=== PATIENT | female | born 1940 | race Caucasian/White ===

== ENCOUNTER 2019-08-25 15:46 | Inpatient (IN) | payer MEDICARE, MEDICAID ==
[2019-08-25] MEDS ORDERED: PLAVIX75 M1 PO (16:08)
[2019-08-25] MEDS ORDERED: EXELON1 EACH TD (16:08)
[2019-08-25] MEDS ORDERED: JANUVIA100 MG PO (16:09)
[2019-08-25] MEDS ORDERED: ZESTORETIC 10-1 EACH PO (16:09)
[2019-08-25] MEDS ORDERED: MELATONIN10 M2 PO (16:10)
[2019-08-25] MEDS ORDERED: REMERON15 M2 PO (16:12)
[2019-08-25] MEDS ORDERED: SEROQUEL100 MG PO (16:12)
[2019-08-25] MEDS ORDERED: SEROQUEL50 MG PO (16:13)
[2019-08-25] MEDS ORDERED: VITAMIN D3125 MC1 PO (16:14)
[2019-08-25] MEDS ORDERED: DEPAKOTE SPRIN125 MG PO (16:19)
[2019-08-25] MEDS ORDERED: ADVIL200 MG PO (16:20)
--- NOTE | 2019-08-26 11:25 | NUR ---
TOÑO BILLINGS a 79 year old F admitted via stretcher from the [facility] as a voluntary BY POA admission. Arrived on unit at 1105 . ALLERGIES: PCN . Vital signs are: -[id number] . VERBAL CONSENT RECEIVED FROM CARMEN ORTIZ, FOR the following forms with stated understanding: Authorization For The Release of Medical Information, Clothing List, Consent to Voluntary Admission and Hospitalization, Consent and Release Forms/Receipt of Rights, Acknowledgement of Advance Directive Information, Behavioral Health Consent Form, and Informed Consent of Medications. Admitted under the services of Dr. JULIUS HICKS,[facility]. A search was conducted and hazardous articles were removed. Client was oriented to the unit. JAMISON SANTIAGO PT REFUSED TO HAVE TEMP, BP, HEIGHT AND WEIGHT ASSESSED. PT UNABLE TO PPARTICIAPTE IN SUICIDE SCREENINGS AND GERIATRIC DEPRESSION SCREENING D/T COGNITION. PT HAS A SKIN TEAR TO RIGHT WRIST, UNABLE TO PHOTOGRAPH OR MEASURE DUE TO PT BEHAVIORS. PT ALERT TO SELF ONLY, CONFUSION AND SHORT TERM MEMORY DEFICITS NOTED PER PT BASELINE. PT COUNTING REPETITIVELY AND RAISING HER VOICE AT TIMES. PT PACING AND RESTLESS.
--- NOTE | 2019-08-26 11:30 | NUR ---
SPOKE WITH DR SANTIAGO AT [phone] RE: MEDICAL MANAGEMENT CONSULT NEEDED, PER DR RED CONSULT UNDER DR HERNANDEZ. ALSO ADVISED THAT PT NEEDS ORDERS FOR SKIN TEAR TO RIGHT WRIST. NO FURTHER ORDERS AT THIS TIME.
--- NOTE | 2019-08-26 11:33 | NUR ---
ROULA LAGUNAS NOTIFIED OF ADMISSION AND VOLUNTARY BY POA STATUS.
--- NOTE | 2019-08-26 11:51 | NUR ---
PT RESTLESS, PACING, INTRUSIVE TO PERSONAL SPACE, ATTEMPTING TO TOUCH OTHER PEERS. DISRUPTING THE MILIEU. ALL ATTEMPTS AT REDIRECTION INEFFECTIVE. PT 1:1 AT THIS TIME. PRN ATIVAN PO GIVEN. WILL MONITOR EFFECTIVENESS OF MEDICATION.
--- NOTE | 2019-08-26 12:30 | NUR ---
PT REMAINS 1:1 DUE TO BEHAVIORS. CONTINUES TO BE UNREDIRECTABLE. PACING HALLS. REPETITIVELY REPEATING NUMBERS. VISIBLY ANXIOUS. PT PLACED IN A MARKEL CHAIR WITH 1:1 FROM THIS NURSE. ENRIQUE MONZON NOTED. PT INCONTINENT OF BM FOR THE SECOND TIME TODAY. JANA CARE PROVIDED TIMES 3 STAFF. WILL CONTINUE TO MONITOR EFFECTIVENESS OF ATIVAN PO.
--- NOTE | 2019-08-26 13:00 | NUR ---
SPOKE WITH DAVID LOCO RECORDS MANAGEMENT TECHNICIAN RE: PT BEHAVIORS, STAFF GIVING PO ATIVAN, WITHOUT EFFECT. NEW ORDERS RECEIVED FOR PO/IM VISTARIL.
--- NOTE | 2019-08-26 13:04 | NUR ---
PT CONTINUES TO BE RESTLESS, REPETITIVE, AND ANXIOUS. PT STATING SHE IS SWEATING AND REMAINS VISIBLY ANXIOUS. 1:1 CONTINUES FROM THIS NURSE. PRN VISTARIL GIVEN PER ORDER. WILL MONITOR EFFECTIVENESS OF MEDICATION.
[2019-08-26 13:27] LABS: BASO % 0.2 % (0.0-1.0); EOS # 0.1 10*3/uL (0.0-0.4); EOS % 1.2 % (1.0-4.0); HEMATOCRIT 30.1 % (37.0-47.0); LYMPH # 1.4 10*3/uL (1.3-4.4); LYMPH % 13.1 % (27.0-41.0); MEAN CELL VOLUME 101.7 fl (81.0-99.0); MEAN CORPUSCULAR HGB 33.4 pg (27.0-31.0); MEAN CORPUSCULAR HGB CONC 32.9 g/dl (33.0-37.0); MEAN PLATELET VOLUME 10.7 fl (9.6-12.3); MONO # 0.8 10*3/uL (0.1-1.0); MONO % 7.8 % (3.0-9.0); NEUT # 8.1 10*3/uL (2.3-7.9); NEUT % 76.8 % (47.0-73.0); PLATELET COUNT AUTOMATED 219 10*3/uL (130-400); RED BLOOD COUNT 2.96 10*6/uL (4.10-5.10); RED CELL DISTRI WIDTH 14.6 % (0-14.5); WHITE BLOOD COUNT 10.6 10*3/uL (4.8-10.8)
[2019-08-26 13:37] LABS: ALBUMIN 3.5 gm/dl (3.1-4.5); CREATININE 1.32 mg/dL (0.55-1.02); POTASSIUM 4.5 mmol/L (3.5-5.1); TOTAL PROTEIN 7.1 gm/dL (6.4-8.2)
[2019-08-26 13:43] LABS: THYROID STIM HORMONE (HS) 2.91 uIU/ml (0.358-4.75)
--- NOTE | 2019-08-26 14:04 | NUR ---
PRN ATIVAN AND VISTARIL IS INEFFECTIVE. PT CONTINUES TO CHANT NUMBERS REPETITIVELY.
[2019-08-26 14:24] LABS: VITAMIN D, 25-HYDROXY 18.6 ng/mL (30-100)
--- NOTE | 2019-08-26 18:26 | NUR ---
RAPID COVID TEST COMPLETED AND RESULTS WERE NEGATIVE. PT TOLERATED WELL.
--- NOTE | 2019-08-26 19:55 | NUR ---
24 HR chart check completed.
[2019-08-26 19:58] VITALS: BP 126/84
--- NOTE | 2019-08-26 21:24 | NUR ---
P-MANIC, CONFUSION, NON STOP TALKING, REPETITIVE SPEECH I-REDIRECT, ADMINISTER MEDS, MONITOR SLEEP R-ALERT TO PERSON ONLY, RESPONSE TO PLACE WAS, "THE FATHER STATION. THE FATHER THAT CORRECTS THE FAMILY". SHE IS RESTLESS, REPETITIVE & NONSTOP SPEECH OF CHANTING NUMBERS. SHE HAS BEEN IN THE ROOM ACROSS FROM THE NURSES STATION TO MONITOR FOR HER SAFETY. CONFUSION PRESENT. COGNITIVELY IMPAIRED. HAS BEEN DISROBING HERSELF & PLAYING WITH A BABYDOLL. ATE SNACK. COMPLIANT TAKING MEDICATIONS CRUSHED. MEDICATED WITH ATIVAN 1 MG PO @ 1935. MEDICATED WITH VISTARIL 50 MG PO @ 2032. P-CONTINUE TO MONITOR
--- NOTE | 2019-08-26 23:07 | NUR ---
STRAIGHT CATHED UNDER STERILE TECHNIQUE PER P&P. URINE CLOUDY. EMPTIED BLADDER OF 225ML URINE. CLIENT INCONTENT OF URINE AND BOWEL PRIOR TO TEST
--- NOTE | 2019-08-26 23:07 | NUR ---
STRAIGHT CATH UNDER STERILE TECHIQUE. IMMEDIATE RETURN OF CLOUDY THOMAS URINE. CLIENT TOLERATED WELL
[2019-08-26 23:27] LABS: BILIRUBIN NEGATIVE (NEGATIVE); BLOOD TRACE-INTACT (NEGATIVE); CLARITY SL CLOUDY (CLEAR); COLOR YELLOW (YELLOW); GLUCOSE NEGATIVE (NEGATIVE); KETONE NEGATIVE (NEGATIVE); LEUKO ESTERASE 2+ (NEGATIVE); NITRITE POSITIVE (NEGATIVE); PH 6.5 (5.0-9.0); UROBILINOGEN 0.2 E.U./dl (0.2-1.0)
[2019-08-26 23:32] LABS: BACTERIA 4+; WBC TNTC wbc/hpf (0-5)
--- NOTE | 2019-08-26 23:49 | NUR ---
PT HAS CALMED A LITTLE WITH ATIVAN & GEODON. SHE HAS CONTINUED TO BE RESTLESS & NON STOP TALKING & CHANTING OF NUMBERS. PT HAS STATED A FEW TIMES, "CANT STOP, MAKE IT STOP" & COUNTS NUMBERS IN BETWEEN WORDS. MEDICATED @ 2308 WITH GEODON 10 MG IM
--- NOTE | 2019-08-27 06:15 | NUR ---
DR JIMÉNEZ NOTIFIED OF URINE RESULTS. STATED SHE WILL LOOK AT IT.
--- NOTE | 2019-08-27 06:16 | NUR ---
GEODON HAS BEEN EFFECTIVE & PT HAS SLEPT PAST 003
[2019-08-27 07:06] LABS: VALPROIC ACID (DEPAKENE) 77.9 ug/ml (50-100)
[2019-08-27 07:41] VITALS: BP 131/67
--- NOTE | 2019-08-27 10:25 | NUR ---
DR. KOO ON UNIT TO ASSESS PATIENT.
--- NOTE | 2019-08-27 11:26 | NUR ---
WILLIAM CHINCHILLA COMPLETED THIS DATE.
--- NOTE | 2019-08-27 15:17 | NUR ---
Shift chart check completed.
--- NOTE | 2019-08-27 15:40 | NUR ---
P: INCREASED CONFUSION, REPEATIVE COUNTING OF NUMBERS, ANXIOUS. I: ONE ON ONE, REDIRECTION, ASSISTED TO QUIET ROOM FOR CHANGE ON ENVIROMENT AND LOW STIMLI, AND PROVIDED MUSIC THERAPY. R: INEFFECTIVE. PATIENT CONTINUES TO COUNT NUMBERS. PATIENT IS NOT RECEPTIVE TO NURSE OR NON PHARMALOGICAL INTERVENTIONS. PATIENT IS ALERT TO SELF AND HANDS ON CARE ONLY; NOT ABLE TO RECALL NAME OR ANSWER STAFF USING HER NAME. LONG/SHORT TERM MEMORY DEFICITS. MEDICATION COMPLIANT. Q 15 MINUTE SAFETY CHECKS. 2-3 PERSON ASSIST WITH ACTIVITIES OF DAILY LIVING, INCONTINENT OF BOWEL AND BLADDER. SET UP FOR MEALS, INTAKE ARE VARIES. UP IN MARKEL CHAIR FOR COMFORT. PATIENT TOOK ANTIBOTIC FOR UTI. P: CONTINUE TO MONITOR FOR AGGRESSION, REPEATIVE COUNTING, WANDERING, INTRUSIVE OF PERSONAL SPACE. PROVIDE ONE ON ONE, REDIRECTION NEEDED.
[2019-08-27 20:00] VITALS: BP 117/63
--- NOTE | 2019-08-28 00:43 | NUR ---
P-CONFUSION, REPETITIVE, NONSENSICAL. I-ASSESS ORIENTATION, MOOD, BEHAVIOR. PRESENT REALITY AND REORIENT. PROVIDE 1:1 WITH THERAPEUTIC INTERVENTIONS. PROVIDE DIVERSION TECHNIQUES. ENCOURAGE MEDICATION COMPLIANCE AND EDUCATE. MONITOR SLEEP. R-PATIENT ALERT TO SELF, CONFUSED. PT CONTINUES TO HAVE REPETITIVE SPEECH OF COUNTING NUMBERS WITH NONSENSICAL STATEMENTS DESPITE REDIRECTION. PT AT TIMES APPEARS INTERMITTENTLY ANXIOUS, RESTLESS. DIVERSION TECHNIQUES PROVIDED TO HELP CALM WITH POSITIVE EFFECT. PT MEDICATION COMPLIANT WITHOUT DIFFICULTY WHEN CRUSHED IN PUDDING, UNABLE TO PROVIDE EDUCATION DUE TO COGNITION. PT VOICES NO SI/HI, HALLUCINATIONS, OR PAIN. PT X2-3 ASSIST WITH HOC, ALL NEEDS ANTICIPATED BY STAFF, INCONTINENT OF BOWEL AND BLADDER. NO COMBATIVE BEHAVIORS OBSERVED. PT CURRENTLY LAYING BACK IN MARKEL CHAIR IN DINING ROOM NEAR NURSES STATION DUE TO LACK OF SAFETY AWARENESS. PT WITH EYES CLOSED, RESPIRATIONS EASY AND REGULAR, NO DISTRESS NOTED. P-CONTINUE TO MONITOR MOOD AND BEHAVIORS. MAINTAIN Q 15 MIN CHECKS AND PRN FOR SAFETY.
--- NOTE | 2019-08-28 06:05 | NUR ---
PATIENT OBSERVED ON Q 15 MIN CHECKS TO HAVE SLEPT APPROX 5 HOURS UNINTERRUPTED. NO SIGNS OR SYMPTOMS OF DISTRESS NOTED.
--- NOTE | 2019-08-28 07:28 | NUR ---
TOÑO BILLINGS [id number] Please refer to the physician's history and physical for past medical history, comorbid conditions, and allergies. Diagnosis: INTERMITTENT EXPLOSIVE DISORDER Osei Score: 20,LOW OR NO RISK WOUND DESCRIPTIONS: This nurse along with with Raven Leyva RN evaluated patient for skin impairments. Wound Number: 1 Location of the wound: right wrist Type of wound: skin tear Thickness: Partial Size: 4.0cm x 1.5cm x 0.1cm Tunneling: none Undermining: none Sinus Tract: none Presence of Exudate: Serosanguineous Amount: Light Color: Red Odor: None Periwound Skin Appearance: Normal Wound edges: approximated Pain (associated with wound): none at time of assessment How does patient state this happened? pt unable to state how this happened Wound Number: 2 Location of the wound: left forearm Type of wound: skin tear Thickness: Partial Size: 1.5cm x 0.8cm x 0.1cm Tunneling: none Undermining: none Sinus Tract: none Presence of Exudate: Serosanguineous Amount: Light Color: Red Odor: None Periwound Skin Appearance: Normal Wound edges: approximated Pain (associated with wound): none at time of assessment How does patient state this happened? pt unable to state how this happened dsd appilied to right wrist and left forearm Patient tolerate dressing changes with much encouragement. Unable to do complete assessment at this time due to patient's behaviors. [facility]ION RECOMMENDATION: 1. Pressure redistribution support surface as appropriate 2. Elevate heels 3. Remove boots/TEDS every shift and reapply 4. Head of bed 30 degrees as tolerated 5. Assess nutrition and hydration 6. Manage moisture 7. Avoid the use of containment devices while in bed 8. Use absorptive products on surfaces limit layers of linens on bed 9. Turn and reposition every 1-2 hours in bed and every 1 hour in chair as tolerated 10. Weight shifts every 15 minutes while up in chair 11. Offloading with pillows or device to keep heels elevated off bed 12. Monitor skin at least every shift 13. Inspect under medical devices twice a day WOUND TREATMENT RECOMMENDATIONS: Skin tear guidelines: Cleanse right wrist, left forearm with nss and apply sureprep around the wound hydrogel to wound bed and cover with optifoam gentle every 2 days and prn for soiling.
[2019-08-28 07:32] VITALS: BP 121/67
--- NOTE | 2019-08-28 08:04 | NUR ---
Nursing screen received and chart reviewed. Patient admitted from [facility] for intermittent explosive disorder. If patient has a decline in ADLs, transfers, or functional mobility, please send OT orders. Thank you. Danae Samson OTR/L
--- NOTE | 2019-08-28 08:20 | NUR ---
PHYSICAL THERAPY PT screen complete and chart reviewed. Patient admitted for intermittent explosive disorder. Recommend skilled PT evaluation if decline in functional mobility presents. Thank you. Lakia Lund,PT,DPT
--- NOTE | 2019-08-28 09:00 | NUR ---
Treatment Plan meeting was held with Dr. Gardiner, ABHI Gonzales, RN, AT, GLUE MAKER BONE-S and Biology Professor. Plan for discharge Next week. Pt. arrived to [facility] from [facility]. Will reach out to facility to discuss discharge Planning.
--- NOTE | 2019-08-28 10:29 | NUR ---
Ayse DIEHL notified of wound care orders needed.
--- NOTE | 2019-08-28 11:00 | NUR ---
LUCY HANNAH CNP ON UNIT TO ASSESS PATIENT.
--- NOTE | 2019-08-28 12:46 | NUR ---
SPEECH PATHOLOGY Nursing screen completed. Patient does not appear to be appropriate for speech services at this time however this dept. will be available should future needs arise. DAO ABEBE MSCCC-MOLECULAR GENETICIST
--- NOTE | 2019-08-28 13:28 | NUR ---
Spoke with Mariajose the Aircraft General Repair Mechanic at [facility]. Pt. is LTC at facility and can return at discharge. Clinical Updates faxed to facility. [phone].
--- NOTE | 2019-08-28 14:31 | NUR ---
P: CONFUSION, DISRUPTIVE TO OTHER PATIENTS WITH HYPTERVERBAL COUNTING OF NUMBERS. I: ONE ON ONE, REDIRECTION, ASSISTED TO QUIET ROOM FOR CHANGE ON ENVIROMENT AND LOW STIMLI. R: INEFFECTIVE. PATIENT CONTINUES TO COUNT NUMBERS. PATIENT IS NOT RECEPTIVE TO NURSE OR NON PHARMALOGICAL INTERVENTIONS. PATIENT IS ALERT TO SELF AND HANDS ON CARE ONLY; NOT ABLE TO RECALL NAME OR ANSWER STAFF USING HER NAME. LONG/SHORT TERM MEMORY DEFICITS. MEDICATION COMPLIANT. Q 15 MINUTE SAFETY CHECKS. 2 PERSON ASSIST WITH ACTIVITIES OF DAILY LIVING, INCONTINENT OF BOWEL AND BLADDER. SET UP FOR MEALS, INTAKE ARE VARIES. UP IN MARKEL CHAIR FOR COMFORT. INTERACTIVE WITH NURSING STAFF ONLY. P: CONTINUE TO MONITOR FOR AGGRESSION, REPEATIVE COUNTING, INTRUSIVE OF PERSONAL SPACE. PROVIDE ONE ON ONE, REDIRECTION NEEDED.
--- NOTE | 2019-08-28 18:36 | NUR ---
Shift chart check completed.
[2019-08-28 19:27] VITALS: BP 155/87
--- NOTE | 2019-08-29 02:42 | NUR ---
P-CONFUSION, REPETITIVE, NONSENSICAL. I-ASSESS ORIENTATION, MOOD, BEHAVIOR. PRESENT REALITY AND REORIENT. PROVIDE 1:1 WITH THERAPEUTIC INTERVENTIONS. PROVIDE DIVERSION TECHNIQUES. ENCOURAGE MEDICATION COMPLIANCE AND EDUCATE. MONITOR SLEEP. R-PATIENT ALERT TO SELF, CONFUSED. PT CONTINUES TO HAVE REPETITIVE SPEECH OF COUNTING NUMBERS WITH NONSENSICAL STATEMENTS DESPITE REDIRECTION. PT APPEARS ANXIOUS, RESTLESS. DIVERSION TECHNIQUES AND INTERVENTIONS PROVIDED WITH NO SUCCESS, RECEIVED PRN VISTARIL 50MG PO AT 0246. PT MEDICATION COMPLIANT WITHOUT DIFFICULTY WHEN CRUSHED IN APPLESAUCE, UNABLE TO PROVIDE EDUCATION DUE TO COGNITION. PT VOICES NO SI/HI, HALLUCINATIONS, OR PAIN. PT X2-3 ASSIST WITH HOC, ALL NEEDS ANTICIPATED BY STAFF, INCONTINENT OF BOWEL AND BLADDER. NO COMBATIVE BEHAVIORS OBSERVED. PT CURRENTLY LAYING BACK IN MARKEL CHAIR IN DINING ROOM NEAR NURSES STATION DUE TO LACK OF SAFETY AWARENESS. NO DISTRESS NOTED. P-CONTINUE TO MONITOR MOOD AND BEHAVIORS. MAINTAIN Q 15 MIN CHECKS AND PRN FOR SAFETY.
--- NOTE | 2019-08-29 04:33 | NUR ---
Upon discharge recommend patient to follow up for wound care in outpatient setting continue current wound care orders at discharging facility.
--- NOTE | 2019-08-29 04:38 | NUR ---
PATIENT CONTINUES TO CHANT NUMBERS, RESTLESS. PRN VISTARIL GIVEN AT 0237 NOT EFFECTIVE AT THIS TIME. WILL CONTINUE TO MONITOR FOR ESCULATING BEHAVIORS.
--- NOTE | 2019-08-29 05:13 | NUR ---
24 HOUR CHART CHECK COMPLETED.
--- NOTE | 2019-08-29 05:50 | NUR ---
PATIENT OBSERVED ON Q 15 MIN CHECKS TO HAVE SLEPT ZERO HOURS THROUGHOUT THE NIGHT. NO DISTRESS NOTED.
[2019-08-29 07:42] VITALS: BP 163/85
--- NOTE | 2019-08-29 08:30 | NUR ---
Treatment Plan meeting was held this a.m. with ABHI Gonzales, RN, AT, COLLECTIONS CURATOR-S and Broker Agricultural Produce. Plan for discharge Next Week. Pt. will return to [facility].
--- NOTE | 2019-08-29 11:35 | NUR ---
LUCY HANNAH ACCELERATOR SYSTEMS DIRECTOR ON UNIT TO ASSESS PT, UPDATE PROVIDED.
--- NOTE | 2019-08-29 15:08 | NUR ---
Patient continues to voice series of numbers. Pt will provide brief answers to questions but will immediately return to voicing series of numbers. Pt will only interact when a direct question is asked of her.
--- NOTE | 2019-08-29 15:47 | NUR ---
GROUP B PT DID NOT ATTEND GROUP THERAPY. PT WAS IN BED RESTING.
[2019-08-29 20:00] VITALS: BP 158/80
--- NOTE | 2019-08-29 21:56 | NUR ---
WALKED IN MERRY WALKER FOR OVER 3 HOURS. NO CHANGE IN REPETATIVE SPEECH OR INTRUSIVE BEHAVIOR. UNABLE TO REORIENT OR REDIRECT. HAD SNACK AND FLUIDS EARLIER. MEDICATED WITH VISTARIL PO PER ORDERS FOR AGGITATION. PLACED CLOSE TO NURSING DESK FOR MONITORING
--- NOTE | 2019-08-30 00:16 | NUR ---
VISTARIL EFFECTIVE FOR ANXIETY.. RESTING QUIET AT THIS TIME
--- NOTE | 2019-08-30 06:09 | NUR ---
SLEPT APPROX 6 HOURS UNINTERUPTED
--- NOTE | 2019-08-30 06:29 | NUR ---
Pt sleeping in gerichair at time of assessment. Dressing intact to left forearm. This nurse along with nurse caring for patient went to evaluate new skin impairment. Patient had resistances at this time while trying to lift arm up to evaluate wound. This nurse explained to nurse caring for patient that when patient is more alert to please let us know and we will try to reevaluate the situation.
--- NOTE | 2019-08-30 07:43 | NUR ---
Patient resting quietly with no c/o discomfort. Respirations easy and regular. Vital signs stable. No overt distress. CHANDLER CORRIGAN [facility]OSPITAL[facility]rick- on unit to see pt at this time, update given.
[2019-08-30 07:44] VITALS: BP 142/73
--- NOTE | 2019-08-30 08:30 | NUR ---
Treatment Plan meeting was held via telephone with Dr. Gardiner, ABHI Gonzales, RN, AT, MANAGER HARDWARE-S and Brine Tank Separator Operator. Plan for discharge Next Week. Pt. will return to [facility].
--- NOTE | 2019-08-30 09:50 | NUR ---
PHYSICAL THERAPY PT evaluation attempted. Patient resting soundly at this time. Request per nursing to return at a later time/ date, due to patient not resting well overnight. Will return at a later time/ date to complete evaluation. Thank you. Lakia Lund,PT,DPT
--- NOTE | 2019-08-30 11:36 | NUR ---
AM GROUP PT DID NOT ATTEND MORNING GROUP THERAPY. PT WAS RESTING IN A QUIET ROOM
--- NOTE | 2019-08-30 15:01 | NUR ---
Clinical Updates faxed to [facility] Attn: Mariajose. [phone].
--- NOTE | 2019-08-30 15:50 | NUR ---
GROUP B/CRAFTS PT IS UNABLE TO ATTEND GROUP THERAPY AT THIS TIME DUE TO COGNITIVE IMPAIRMENT. PT WAS WALKING THE [facility] IN THE [facility]
--- NOTE | 2019-08-30 17:24 | NUR ---
P: PT RESTLESS, ANXIOUS, CONTINUES TO COUNT REPEATEDLY THROUHGOUT THE DAY. I: PROVIDE EMOTIONAL SUPPORT AND 1:1 FOR PT TO VOICE FEELINGS, OFFER DIVERSIONAL ACTIVITIES, PROVIDE REDIRECTION, PROVIDE LOW STIMUALTION ENVIRONMENT FOR PT TO CALM R: PT ALERT TO PERSON ONLY, CONFUSION AND SHORT TERM MEMORY DEFICITS NOTED PER PT BASELINE. PT MED COMPLIANT WITHOUT DIFFICULTY, UNABLE TO PROVIDE MED EDUCATION D/T COGNITION. PT CONTINUES TO COUNT REPEATEDLY WITHOUT STOPPING, DIVERSION ACTIVITIES AND REDIRECTION INEFFECTIVE. PT UP TO A GERICHAIR D/T UNSTEADY GAIT AND LACK OF SAFETY AWARENESS. PT WILL AMBULATE IN MERRYWALKER AT TIMES. PT INCONTINENT OF BOWEL AND BLADDER, CARE PROVIDED NEEDED, REQUIRES 3 STAFF ASSIST FOR HANDS ON CARE. P: MONITOR PT BEHAVIORS ON Q15 MIN SAFETY CHECKS, ENCOURAGE MED COMPLIANCE, OFFER REDIRECTION AND DIVERSIONAL ACTIVITIES, PROVIDE EMOTIONAL SUPPORT AND 1:1 FOR PT TO VOICE FEELINGS, PROVIDE LOW STIMULATION ENVIRONMENT FOR PT TO CALM.
[2019-08-30 20:00] VITALS: BP 140/78
--- NOTE | 2019-08-30 20:46 | NUR ---
MEDICATION COMPLIANT. CONTINUES TO COUNT WITH REPEATING 72 COME DAD BE THERE. WHEN ASKED HOW SHE WAS SHE REPLIED FINE THEN WENT BACK TO COUNTING. ATE HER SNACK AND TOOK IN FLUIDS. WILL MONITOR FOR CHANGES IN MOOD/BEHAVIOR AND Q 15 MINS AND PRN
--- NOTE | 2019-08-31 00:26 | NUR ---
AMBULATED TO BATHROOM WITH ASSIST OF 2. GAIT UNSTEADY. CLIENT ANSWERS YES AND NO QUESTIONS INBETWEEN COUNTING. PM CARE COMPLETED. INCONTINENT OF URINE. RETURNED TO MARKEL CHAIR AND IS CURRENTLY WATCHING TV
--- NOTE | 2019-08-31 03:14 | NUR ---
TOÑO BILLINGS [id number] Please refer to the physician's history and physical for past medical history, comorbid conditions, and allergies. Diagnosis: INTERMITTENT EXPLOSIVE DISORDER Osei Score: 16,AT RISK WOUND DESCRIPTIONS: New Skin Impairment: Wound Number: 3 Location of the wound: left forearm distal Type of wound: skin tear Thickness: Partial Size: 2.2cm x 0.6cm x 0.1cm Tunneling: none Undermining: none Sinus Tract: none Presence of Exudate: none Amount: None Color: Red Odor: None Periwound Skin Appearance: ecchymotic Wound edges: approximated Pain (associated with wound): none at time of assessment How does patient state this happened? pt unable to state how this happened Wound Number: 4 Location of the wound: right elbow Type of wound: skin tear Thickness: Partial Size: 1.0cm x 0.8cm x 0.1cm Tunneling: none Undermining: none Sinus Tract: none Presence of Exudate: none Amount: None Color: [place] Odor: None Periwound Skin Appearance: Normal Wound edges: approximated Pain (associated with wound): none at time of assessment How does patient state this happened? pt unable to state how this happen Surface the patient is resting on: [employer] SKIN PREVENTION RECOMMENDATION: 1. Pressure redistribution support surface as appropriate 2. Elevate heels 3. Remove boots/TEDS every shift and reapply 4. Head of bed 30 degrees as tolerated 5. Assess nutrition and hydration 6. Manage moisture 7. Avoid the use of containment devices while in bed 8. Use absorptive products on surfaces limit layers of linens on bed 9. Turn and reposition every 1-2 hours in bed and every 1 hour in chair as tolerated 10. Weight shifts every 15 minutes while up in chair 11. Offloading with pillows or device to keep heels elevated off bed 12. Monitor skin at least every shift 13. Inspect under medical devices twice a day WOUND TREATMENT RECOMMENDATIONS: D/C skin tear guidelines Cleanse left forearm proximal, left forearm distal, right elbow and right wrist with nss apply tegaderm dressing every 3 days and prn for soiling. lossening of the film or if it begins to roll up at the corners.
--- NOTE | 2019-08-31 03:27 | NUR ---
During assessment this nurse had to have assistances with care due to patient having behaviors unabe to obtain photographs at this time for new skin impairment. Patient has long sleeves on and sleeves were placed down over the dressing patient continues to push sleeves up and continue to rub on the gerichair arms. Unable to keep sleeves down at time of assessment.
--- NOTE | 2019-08-31 05:29 | NUR ---
24 HR chart check completed. HAS NOT SLEPT SO FAR THIS SHIFT
[2019-08-31 07:51] VITALS: BP 115/63
--- NOTE | 2019-08-31 09:00 | NUR ---
Treatment Plan meeting was held this a.m. via telephone with Dr. Gardiner, RN, AT, HEARING AID DISPENSER-S and Division Road Supervisor. Plan for discharge Next week with return to [facility].
--- NOTE | 2019-08-31 11:43 | NUR ---
AM GROUP/RELAXATION PT WAS PRESENT FOR MORNING GROUP THERAPY AND WAS SITTING IN A MARKEL CHAIR REPEATEDLY COUNTING. PT BEGAN UPSETTING A MALE PEER AT NO FAULT OF HER OWN BUT WAS REMOVED FROM THE DAYROOM TO CALM THE MALE PEER AND TO PROTECT HER.
--- NOTE | 2019-08-31 12:58 | NUR ---
P: PT REPEATEDLY COUNTING OUT OF ORDER. PT RESTLESS I: PROVIDE DIVERSIONAL ACTIVITIES, PROVIDE EMOTIONAL SUPPORT AND 1:1 FOR PT TO VOICE FEELINGS, PROVIDE REDIRECTION R: PT ALERT TO PERSON ONLY, CONFUSION AND SHORT TERM MEMORY DEFICITS NOTED PER PT BASELINE, STAFF PROVIDED RE-ORIENTATION, INEFFECTIVE DUE TO COGNITION. PT MED COMPLIANT WITHOUT DIFFICULTY. PT COUNTING HAS DECREASED INTERMITTENTLY. PT AMBUALTORY WITH STAFF ASSISTANCE, UNSTEADY GAIT, UP TO A GERICHAIR AT THIS TIME, D/T UNSTEADY GAIT AND LACK OF SAFETY AWARENESS. PT INCONTINENT OF BOWEL AND BLADDER, CARE PROVIDED NEEDED. NO HALLUCINATIONS OR DELUSIONS NOTED. NO SUICIDAL THOUGHTS OR BEHAVIORS NOTED. P: MONITOR PT BEHAVIORS ON Q15 MIN SAFETY CHECKS, PROVIDE RE-ORIENTATION, OFFER DIVERSIONAL ACTIVITIES, PROVIDE REDIRECTION, OFFER EMOTIONAL SUPPORT AND 1:1 FOR PT TO VOICE FEELINGS.
--- NOTE | 2019-08-31 15:40 | NUR ---
GROUP B PT ATTENDED AFTERNOON GROUP THERAPY AND PARTICIPATED TO THE BEST OF HER ABILITY. PT PLAYED TOSS AND LOOKED AT THE NEWSPAPER. PT DID VERY LITTLE COUNTING AND WAS ENGAGED IN THE ACTIVITIES.
--- NOTE | 2019-08-31 19:41 | NUR ---
SITTING WATCHING TV. PLEASENT AND INTERACTIVE. NOTICABLE DECREASE IN COUNTING. EATING SNACK PROVIDED BY STAFF. WILL CONTINUE TO MONITOR FOR CHANGES IN MOOD/BEHAVIOR. MONITOR Q 15 MINUTES AND PRN FOR SAFETY
[2019-08-31 20:00] VITALS: BP 115/64
--- NOTE | 2019-09-01 00:26 | NUR ---
RESTING WELL IN BED. 24 HR chart check completed.
[2019-09-01 08:00] VITALS: BP 112/62
--- NOTE | 2019-09-01 09:00 | NUR ---
Treatment Plan meeting was held this a.m. with OPERATOR MAINTAINER Janet, RN, AT, CONCRETE MIXER OPERATOR-S and Herbologist in attendance. Plan for discharge Next week. 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
--- NOTE | 2019-09-01 09:08 | NUR ---
PHYSICAL THERAPY Physical Therapy evaluation completed on 3N with full evaluation to follow. Low complexity PT evaluation per chart review and evaluation, [id number]. Recommend physical therapy per plan of care and return to LTC upon discharge. Thank you for this referral. Lakia Lund,PT,DPT
--- NOTE | 2019-09-01 10:51 | NUR ---
Nutritional Support Services Note: Skin tears noted. Encourage 100% po intake of all maels and snacks. Will follow as needed. Shreya Gagnon Rdn Ld
--- NOTE | 2019-09-01 11:40 | NUR ---
AM GROUP PT WAS PRESENT FOR MORNING GROUP THERAPY SITTING IN A MARKEL CHAIR SLEEPING. PT WOKE ONCE AND WAS PLEASANT. PT FELL BACK TO SLEEP.
--- NOTE | 2019-09-01 13:39 | NUR ---
GROUP A PT WAS PRESENT FOR GROUP THERAPY STILL EATING HER LUNCH. PT FINISHED AND FELL ASLEEP.
--- NOTE | 2019-09-01 15:24 | NUR ---
Clinical Updates faxed to [facility].
--- NOTE | 2019-09-01 15:34 | NUR ---
Shift chart check completed.
--- NOTE | 2019-09-01 15:44 | NUR ---
GROUP B / DUSTIN PT WAS PRESENT FOR GROUP THERAPY RECLINED IN A MARKEL CHAIR SLEEPING. PT DID NOT WAKE DURING GROUP.
--- NOTE | 2019-09-01 17:07 | NUR ---
PRN MOM 30ml PO given at this time for relief of constipation. No documented BM x3 days. +BSx4. Abd soft nontender. No s/s discomfort noted. Will monitor for medication effect.
--- NOTE | 2019-09-01 17:31 | NUR ---
PATIENT IS ALERT TO SELF ONLY WITH CONFUSION. LONG/SHORT TERM MEMORY DEFICITS NOTED. MOOD IS STABLE. NO YELLING OUT, COUNTING OF NUMBER OR AGGRESSION OBSERVEC. NO RESPONSE TO INTERNAL STIMULI OBSERVED. NO VOICED STATEMENT OF HI/SI OR PAIN. INTERACTIVE WITH STAFF DURING HANDS ON CARE. ATTENDED GROUP SESSION BUT DID NOT PARTICIPATE. MEDICAITON COMPLIANT. Q 15 MINUTE SAFETY CHECKS MAINTAINED. 2 PERSON ASSIST WITH ACTIVITIES OF DAILY LIVING, INCONTINENT OF BOWEL AND BLADDER. SET UP FOR MEALS, INTAKES ARE GOOD WITH ADEQUATE FLUIDS. UP IN MARKEL CHAIR FOR COMFORT. CONTINUE TO MONITOR FOR INCREASED AGITATION, WANDERING, DISROBING AND INTRUSIVE WITH OTHER PATIENT/STAFF. PROVIDE ONE ON ONE, REDIRECTION/ORIENTATION NEEDED.
[2019-09-01 20:00] VITALS: BP 118/79
--- NOTE | 2019-09-02 04:59 | NUR ---
P-CONFUSION, ISOLATIVE I-REDIRECTION WITH 1:1 THEAPEUTIC INTERVENTIONS AND COMMUNICATION. PRESENT REALITY. EDUCATE AND ENCOURAGE MEDICATION COMPLIANCE R-MEDICATION COMPLIANT AT HS. PATIENT PROVIDED NOURISHMENT AND FLUIDS AT HS. PATIENT COMMUNICATING WITH NURSING STAFF USING SHORT RESPONSES. PATIENT SHOWERED THIS SHIFT AND AMBULATING IN HALLWAY X 2 ASSIST. PATIENTT UNSTEADY WITH AMBULATION. PATIENT WITH NO HALLUCINATIONS OR DELUSIONS. PATIENT WITH NO HOMICIDAL IDEATIONS AND DENIES SUICIDAL IDEATIONS AT THIS TIME. P-CONTINUE TO ENCOURAGE MEDICATION COMPLIANCE, CONTINUE TO PRSENT REALITY, ENCOURAGE GROUP THERAPY WHILE AWAKE
--- NOTE | 2019-09-02 05:05 | NUR ---
PATIENT SLEPT 7 HOURS THROUGHOUT SHIFT. Q 15 MINUTED CHECKS MAINTINED. 24 HR chart check completed.
[2019-09-02 07:50] VITALS: BP 142/78
[2019-09-02 20:00] VITALS: BP 138/74
--- NOTE | 2019-09-03 00:41 | NUR ---
P-CONFUSION, ISOLATIVE, AGITATION, YELLING OUT I-REDIRECTION WITH 1:1 THEAPEUTIC INTERVENTIONS AND COMMUNICATION. PRESENT REALITY. EDUCATE AND ENCOURAGE MEDICATION COMPLIANCE R-MEDICATION COMPLIANT AT HS. PATIENT PROVIDED NOURISHMENT AND FLUIDS AT HS. PATIENT COMMUNICATING WITH NURSING STAFF THIS SHIFT. PATIENT YELLING OUT NUMBERS DURING SHIFT. PATIENT WITH ATTEMPT TO BITE NURING STAFF. PATIENT AGITATED AND ALL NONPHARMACOLOGICAL ATTEMPTS MADE. PATIENT MEDICATED WITH VISTARIL WITH EFFECTIVE RESULTS AT THIS TIME. PATIENT WITH NO HALLUCINATIONS OR DELUSIONS. PATIENT WITH NO HOMICIDAL IDEATIONS AND DENIES SUICIDAL IDEATIONS AT THIS TIME. P-CONTINUE TO ENCOURAGE MEDICATION COMPLIANCE, CONTINUE TO PRSENT REALITY, ENCOURAGE GROUP THERAPY WHILE AWAKE
--- NOTE | 2019-09-03 06:29 | NUR ---
PATIENT SLEPT 4-5 HOURS OF INTERRUPTED SLEEP THROUGHOUT SHIFT. Q 15 MINUTE CHECKS MAINTAINED. 24 HR chart check completed.
[2019-09-03 08:08] VITALS: BP 144/70
--- NOTE | 2019-09-03 10:08 | NUR ---
PT INCREASINGLY ANXIOUS AND AGITATED, [place] REPEATEDLY, YELLING OUT, GRABBING AT STAFF AND PEERS, KICKING AT STAFF AND PEERS, PICKING AT SKIN, REMOVING DRESSING TO SKIN TEARS. STAFF PROVIDED EMOTIONAL SUPPORT AND 1:1 FOR PT TO VOICE FEELINGS, PROVIDED LOW STIMULATION ENVIRONMENT FOR PT TO CALM, OFFERED DIVERSIONAL ACTIVITIES. ALL INTERVENTIONS INEFFECTIVE, PT MEDICATED WITH VISTARIL PO PRN PER ORDERS. WILL CONTINUE TO MONITOR.
--- NOTE | 2019-09-03 11:07 | NUR ---
DR SERNA AND DR DELATORRE ON UNIT TO ASSESS PT, UPDATE PROVIDED.
--- NOTE | 2019-09-03 11:30 | NUR ---
VISTARIL SLIGHTLY EFFECTIVE, PT NOTICABLY CALMER, CONTINUES TO COUNT REPEATEDLY. WILL CONTINUE TO MONITOR.
--- NOTE | 2019-09-03 17:40 | NUR ---
SPOKE WITH DR DELATORRE AND ADVISED OF NEEDING ORDERS FOR ELBOW PROTECTORS FOR PT.
[2019-09-03 20:00] VITALS: BP 136/69
--- NOTE | 2019-09-03 23:44 | NUR ---
P-CONFUSION, ISOLATIVE, AGITATION, YELLING OUT I-REDIRECTION WITH 1:1 THEAPEUTIC INTERVENTIONS AND COMMUNICATION. PRESENT REALITY. EDUCATE AND ENCOURAGE MEDICATION COMPLIANCE R-MEDICATION COMPLIANT AT HS. PATIENT PROVIDED NOURISHMENT AND FLUIDS AT HS. PATIENT YELLING OUT RANDOM NUMBERS DURING SHIFT. PATIENT WITH ATTEMPT TO GRAB NURING STAFF. PATIENT PICKING AT SKIN WIT REDIRECTION ATTEMPTS INEFFECTIVE. PATIENT AGITATED AND ALL NONPHARMACOLOGICAL ATTEMPTS MADE. PATIENT MEDICATED WITH VISTARIL WITH EFFECTIVE RESULTS AT THIS TIME. PATIENT WITH NO HALLUCINATIONS OR DELUSIONS. PATIENT WITH NO HOMICIDAL IDEATIONS AND DENIES SUICIDAL IDEATIONS AT THIS TIME. P-CONTINUE TO ENCOURAGE MEDICATION COMPLIANCE, CONTINUE TO PRSENT REALITY, ENCOURAGE GROUP THERAPY WHILE AWAKE
--- NOTE | 2019-09-04 05:20 | NUR ---
PATIENT SLEPT 7 HOURS OF UNINTERRUPTED SLEEP THROUGHOUT SHIFT. Q 15 MINUTE CHECKS MAINTAINED. 24 HR chart check completed.
--- NOTE | 2019-09-04 07:25 | NUR ---
PHYSICAL THERAPY Patient seen this am for therapy visit and was resting supine in bed upon therapist arrival. Patient identified by ankle identificant band and was very lethargic, requiring multiple v/c's for active participation. OT student was also present for observation only as patient was able to transfer supine to sit EOB with MOD A x 1. Patient needed an extra minute to fully awaken, prior to completing sit to stand transfer, MIN A. Patient ambulated MEDICAL PRACTICE MANAGER/CGA, 25'x 1, demonstrating slow, wobbly gait pattern. Patient improved lo by holding on to handrail in hallway and needed v/c to increase stride. Patient fatigues quickly and following brief seated rest break, ambulated addtional 15'x 1 prior to returning to Josefina chair. Patient remained in Josefina chair with body alarm in activity room awaiting breakfast, under [facility] staff Supervision. Will continue per POC as tolerated, total treatment time 16 minutes. Quan Saab, SHOE SPRAYER
[2019-09-04 07:38] VITALS: BP 152/71
--- NOTE | 2019-09-04 08:14 | NUR ---
PHYSICAL THERAPY Screen and eval order received, pt was evaluated on 08/31 and is on caseload. Carolynn Candelario PT
--- NOTE | 2019-09-04 10:30 | NUR ---
Treatment Plan meeting was held this a.m. with Dr. Gardiner, OPTICAL TECHNICIAN Janet, RN, AT, MANGLE OPERATOR GARMENTS-S and Director Of Student Financial Aid. Plan for discharge at the end of the week, beginning of Next. Pt. will return to [facility].
--- NOTE | 2019-09-04 11:34 | NUR ---
AM GROUP/EXERCISE AND REMINISCING PT WAS PRESENT AT THE START OF GROUP BUT IS UNABLE TO PARTICIPATE DUE TO COGNITIVE IMPAIRMENT. PT KEPT BOTHERING A FEMALE PEER, TRYING TO GRAB HER HAND AND SAYING, "COME ON. GET HER OUT". PT WAS TAKEN OUT OF THE DAYROOM FOR OBSERVATION BY [facility].
--- NOTE | 2019-09-04 11:44 | NUR ---
TOÑO BILLINGS Narinder [id number] Please refer to the physician's history and physical for past medical history, comorbid conditions, and allergies. Diagnosis: INTERMITTENT EXPLOSIVE DISORDER Osei Score: 16,AT RISK WOUND DESCRIPTIONS: Wound Number: 1 Location of the wound: right wrist Type of wound: skin tear scabbed Thickness: Partial Size: 4.0cm x 1.5cm x 0.1cm Tunneling: none Undermining: none Sinus Tract: none Presence of Exudate: None Amount: none Color: Red Odor: None Periwound Skin Appearance: Normal Wound edges: closed. Intact scab Pain (associated with wound): none at time of assessment How does patient state this happened? pt unable to state how this happened Wound Number: 2 Location of the wound: left forearm Type of wound: skin tear Thickness: Partial Size: 1.5cm x 0.8cm x 0.1cm Tunneling: none Undermining: none Sinus Tract: none Presence of Exudate: none Amount: none Color: Red Odor: None Periwound Skin Appearance: Normal Wound edges: approximated Pain (associated with wound): none at time of assessment How does patient state this happened? pt unable to state how this happened Wound Number: 3 Location of the wound: left forearm distal Type of wound: skin tear Thickness: Partial Size: 2.2cm x 0.6cm x 0.1cm Tunneling: none Undermining: none Sinus Tract: none Presence of Exudate: none Amount: None Color: Red Odor: None Periwound Skin Appearance: ecchymotic Wound edges: approximated Pain (associated with wound): none at time of assessment How does patient state this happened? pt unable to state how this happened Wound Number: 4 Location of the wound: right elbow Type of wound: skin tear Thickness: Partial Size: 1.0cm x 0.8cm x 0.1cm Tunneling: none Undermining: none Sinus Tract: none Presence of Exudate: none Amount: None Color: [place] Odor: None Periwound Skin Appearance: Normal Wound edges: approximated Pain (associated with wound): none at time of assessment How does patient state this happened? pt unable to state how this happened Surface the patient is resting on: Proform SKIN PREVENTION RECOMMENDATION: 1. Pressure redistribution support surface as appropriate 2. Elevate heels 3. Remove boots/TEDS every shift and reapply 4. Head of bed 30 degrees as tolerated 5. Assess nutrition and hydration 6. Manage moisture 7. Avoid the use of containment devices while in bed 8. Use absorptive products on surfaces limit layers of linens on bed 9. Turn and reposition every 1-2 hours in bed and every 1 hour in chair as tolerated 10. Weight shifts every 15 minutes while up in chair 11. Offloading with pillows or device to keep heels elevated off bed 12. Monitor skin at least every shift 13. Inspect under medical devices twice a day WOUND TREATMENT RECOMMENDATIONS: Continue current orders to skin tears on right wrist, left forearm, left forearm distal, and right elbow. Continue wheelchair cushion when out of bed.
--- NOTE | 2019-09-04 13:45 | NUR ---
Family meeting held via the phone with pt's Hugh. Provided pt update to Hugh. Hugh provided futher pt history. Discussed pt discharge with Hugh confirming that pt is to return to [facility] upon [facility] discharge.
--- NOTE | 2019-09-04 14:07 | NUR ---
GROUP A PT DID NOT ATTEND GROUP THERAPY.PT WAS NAPPING IN A QUIET ROOM
--- NOTE | 2019-09-04 18:19 | NUR ---
PT ALERT TO PERSON ONLY, CONFUSION AND SHORT TERM MEMORY DEFICITS NOTED PER PT BASELINE. PT MED COMPLIANT WITHOUT DIFFICULTY, UNABLE TO PROVIDE MED EDUCATION D/T COGNITION. PT SPEECH REMAINS REPETITIVE AT TIMES AND THE COUNTING IS DECREASED AT TIMES. NO HALLUCINATIONS OR DELUSIONS NOTED. NO SUICIDAL THOUGHTS OR BEHAVIORS NOTED. PT AMBULATORY THROUGHOUT UNIT, GAIT OCCASIONALLY UNSTEADY. PT INCONTINENT OF BOWEL AND BLADDER, CARE PROVIDED NEEDED. PLAN IS TO MONITOR PT BEHAVIORS ON Q15 MIN SAFETY CHECKS, ENCOURAGE MED COMPLIANCE, PROVIDE EMOTIONAL SUPPORT AND 1:1 FOR PT TO VOICE FEELINGS, PROVIDE LOW STIMULATION ENVIRONMENT FOR PT TO CALM WHEN NEEDED.
[2019-09-04 19:04] VITALS: BP 131/72
--- NOTE | 2019-09-04 20:26 | NUR ---
P--DISRUPTIVE, CONFUSION I--MEDICATED PER ORDERS. TRIED 1:1 BUT UNABLE. UNABLE TO DIRECT R--TOUCHING OTHER PEERS, TAKING THEIR FOOD AND DRINK. ROAMING IN AND OUT OF ROOM. UNABLE TO BE REDIRECTED. P--MONITOR FOR BEHAVIOR/MOOD CHANGES. MONITOR Q 15 MINUTES AND PRN FOR SAFETY
--- NOTE | 2019-09-04 20:48 | NUR ---
CLIENT KEEPS REPEATING I CAN'T RELAX I CAN'T RELAX. HELP ME HELP ME. SAT WITH CLIENT FOR APPROX 1/2 HOUR AND UNABLE TO CALM CLIENT. VISTARIL 50MG PO GIVEN PER ORDERS.
--- NOTE | 2019-09-05 00:27 | NUR ---
RESTING WELL SINCE BEING GIVEN VISTARIL
--- NOTE | 2019-09-05 04:06 | NUR ---
24 HR chart check completed. SLEEPING WELL IN CHAIR FOR PAST FEW HOURS
--- NOTE | 2019-09-05 07:25 | NUR ---
PHYSICAL THERAPY Patient seen this am for therapy visit and was resting semi reclined in conference room Josefina chair upon therapist arrival. OT observation assistant was present this morning for observation only as patient identified by name / prior to treatment. Patient was a little sleepy at first, needing a minute or so of sitting upright to fully awaken, then performed sit to stand transfer, MIN A. Patient ambulates along handrail, SMALL WIND ENERGY INSTALLER/CGA, 60'x 1, demonstrating slow, steady lo, however easily distracted which contributes to bouts of unsteady step sequence. Patient able to focus on task following v/c and returned to activity room chair at table awaiting breakfast. Patient remained at table under [facility] staff Supervision and will continue per POC as tolerated, total treatment time 15 minutes. Quan Saab, GOLF COURSE SUPERINTENDENT
--- NOTE | 2019-09-05 07:32 | NUR ---
Patient resting quietly with no c/o discomfort. Respirations easy and regular. Vital signs stable. No overt distress. GIVENS,BRODY
--- NOTE | 2019-09-05 07:32 | NUR ---
Patient refused dressing changes at this time.
[2019-09-05 07:48] VITALS: BP 118/92
--- NOTE | 2019-09-05 09:00 | NUR ---
Treatment Plan meeting was held this a.m. with ABHI Gonzales, RN, AT, LUIS-S and regional planner. Plan for discharge Wednesday with return to [facility].
--- NOTE | 2019-09-05 09:50 | NUR ---
Occupational Therapy evaluation completed on 3N with full evaluation to follow. Recommend occupational therapy per plan of care and return to LTC facility ([facility]) upon discharge. Thank you for this referral. Ginna Ohara OTR/L
--- NOTE | 2019-09-05 11:36 | NUR ---
AM GROUP/PUZZLES PT WAS PRESENT FOR MORNING GROUP THERAPY BUT IS UNABLE TO PARTICIPATE DUE TO COGNITIVE IMPAIRMENT. PT SAT IN A COMFY CHAIR AT THE BACK OF THE ROOM AND SLEPT.
--- NOTE | 2019-09-05 14:36 | NUR ---
Observed pt this AM in the waddell and standing near nurse's station. Pt would at times invade another's personal space. Later observed pt repeating constantly, "Father, Son, and Holy Spirit." Walked with pt down the waddell in an attempt to interest pt in looking out the window. Pt was unable to focus on questions being asked about view from window. Pt stayed at the window briefly and then grabbed this literary writer's hand as pt began walking up the waddell. Informed pt that this literary writer had spoken with pt's and that he misses her. Pt commented, "He did? I miss him too." Pt then returned to repeating, Father, Son, and Holy Spirit."
--- NOTE | 2019-09-05 15:38 | NUR ---
GROUP B PT WAS PRESENT FOR GROUP THERAPY SLEEPING RECLINED IN A MARKEL CHAIR. PT DID NOT WAKE DURING GROUP.
--- NOTE | 2019-09-05 16:23 | NUR ---
P: PT HYPERVERBAL, SPEECH IS REPETITIVE THROUGHOUT THE DAY, SAYING "COME ON COME ON DO IT, COME ON COME ON". PT RESTLESS, INCREASINGLY ANXIOUS AT TIMES. I: PROVIDE EMOTIONAL SUPPORT AND 1:1 FOR PT TO VOICE FEELINGS, PROVIDE REDIRECTION AND RE-ORIENT NEEDED R: PT ALERT TO PERSON ONLY, CONFUSION AND SHORT TERM MEMORY DEFICITS NOTED PER PT BASELINE. PT CONTINUES TO BE HYPERVERBAL AT TIMES, REPETITIVE SPEECH CONTINUES. PT CONTINUES TO BE RESTLESS AND REQUIRES MUCH ENCOURAGEMENT TO SIT AND REST. PT AMBULATORY THROUGHOUT UNIT, GAIT OCCASIONALLY UNSTEADY. PT INCONTINENT OF BOWEL AND BLADDER, CARE PROVIDED NEEDED. P: MONITOR PT BEHAVIORS ON Q15 MIN SAFETY CHECKS, ENCOURAGE MED COMPLIANCE, ENCOURAGE PERIODS OF REST, PROVIDE LOW STIMULATION ENVIRONMENT FOR PT TO CALM, RE-ORIENT AND PROVIDE REDIRECTION NEEDED.
[2019-09-05 18:59] VITALS: BP 136/62
--- NOTE | 2019-09-05 20:19 | NUR ---
SITTING IN DININGROOM FOR SNACK AND FLUIDS. INTERMITTENT NAPPING NOTED. MEDICATION COMPLIANT. WILL CONTINUE TO MONITOR FOR BEHAVIOR/MOOD CHANGES AND Q 15 MINUTES AND PRN FOR SAFETY
--- NOTE | 2019-09-06 05:50 | NUR ---
REMAINS SLEEPING A THIS TIME. WILL CHECK FOR CONTINENCE. 24 HR chart check completed.
--- NOTE | 2019-09-06 05:51 | NUR ---
REMAINS SLEEPING A THIS TIME. WILL CHECK FOR CONTINENCE. 24 HR chart check completed.
[2019-09-06 07:35] VITALS: BP 132/67
--- NOTE | 2019-09-06 07:57 | NUR ---
Patient resting quietly with no c/o discomfort. Respirations easy and regular. Vital signs stable. No overt distress. CHANDLER CORRIGAN [facility]ITALDarrick- on unit to see pt at this time, update given.
--- NOTE | 2019-09-06 09:00 | NUR ---
Treatment Plan meeting was held this a.m. with Nurse Practitioner JODI Gonzales, AT, ANALOG CIRCUIT DESIGNER-S and Powerhouse Engineer. Plan for discharge Wednesday with return to [facility].
--- NOTE | 2019-09-06 09:10 | NUR ---
PHYSICAL THERAPY Patient was approached several times this am for therapy treatment and was in bed asleep on both attempts. Per questioning GRANTS OFFICER if patient planning to get up anytime soon, her response was "I don't know". Patients response when aroused to awaken was only a "blank stare" and no verbal reply. Will continue per POC as able. No services provided this date. Quan Saab, SEED TESTER
--- NOTE | 2019-09-06 11:39 | NUR ---
AM GROUP PT DID NOT ATTEND MORNING GROUP THERAPY.PT WAS IN BED RESTING.
--- NOTE | 2019-09-06 13:12 | NUR ---
Clinical Updates faxed to [facility] Attn: Mariajose.
--- NOTE | 2019-09-06 13:37 | NUR ---
Spoke with weatherization coordinator at [facility]. Two Negative Covid 19 Swabs are required Prior to Patient readmit to facility it is the facility policy. Notified Nursing Staff to obtain swab.
--- NOTE | 2019-09-06 14:38 | NUR ---
P- Confused. Repetitive speech/counting. I- Orientation, mood and behaviors assessed. Assessed pt for SI/HI, hallucinations, paranoia and/or delusions. Medications administered as per physician's orders. Assistance with ADL care provided as needed. Encouraged pt to attend and participate in grajeda milieu groups and activities. R- Pt is alert and oriented to name only, otherwise confused. Unable to accurately assess memory recall as pt presents with irrelevant speech and continual counting. Pt counting random sequences of numbers, occasionally states "come on, come on" and then resumes counting with another sequence of numbers. Pt does not count in correct numerical order. No SI/HI, hallucinations, paranoia or delusions noted. Pt is medication compliant without difficulty. No aggressive or threatening behaviors displayed. No distress noted. P- Plan to continue current treatment, continue to monitor mood and behaviors, provide appropriate reorientation, redirection and 1:1 as needed. Continue to encourage medication compliance as well as group attendance and participation.
--- NOTE | 2019-09-06 16:45 | NUR ---
Shift chart check completed.
[2019-09-06 19:39] VITALS: BP 130/66
--- NOTE | 2019-09-06 21:37 | NUR ---
RESTING QUIET. MEDICATION COMPLIANT. GAIT STEADY AT THIS TIME. CONTINUES COUNT . WILL CONTINUE TO MONITOR BEHAVIOR/MOOD CHANGES AND Q 15 MIN AND PRN FOR SAFETY
--- NOTE | 2019-09-07 02:31 | NUR ---
24 HR chart check completed.
--- NOTE | 2019-09-07 05:40 | NUR ---
HAS SLEPT WELL IN BED PAST 2200. MOVES SELF IN BED. SHE PICKED ALL DRESSINGS OFF LAST NIGHT. AREAS WERE CLEANED UP AND BLEEDING STOPPED. REFUSES TO HAVE DRESSINGS APPLIED
--- NOTE | 2019-09-07 06:11 | NUR ---
Spoke with Kady Mustafa and she states no matter what type of dressing we apply to patient. Patient removes and tried to eat dressing. No dressing applied at this time due to this behavior.
--- NOTE | 2019-09-07 06:39 | NUR ---
EASILY AWAKENED AND DRESSED FOR THE DAY BUT HYPERVERBAL COUNTING, CLAPPING HANDS AND SAYING COME ON BOY COME ON. WHEN ASKED WHY SHE IS COUNTING SHE REPEATS THE QUESTION THEN SAYS I DON'T KNOW AND RESUME. UNABLE TO REDIRECT.RESTLESS IN CHAIR. SITTING ACROSS FROM NURSES DESK
--- NOTE | 2019-09-07 07:35 | NUR ---
Patient sitting in quiet room, restless, continual repetitive counting noted. Respirations easy and regular. Vital signs stable. No overt distress. CHANDLER CORRIGAN
[2019-09-07 08:00] VITALS: BP 124/80
--- NOTE | 2019-09-07 08:30 | NUR ---
Treatment Plan meeting was held this a.m. via telephone with Dr. Gardiner, RN, AT, SCREEN TENDER-S and Consulting Property Manager. Plan for discharge when Covid Swab returns. Pt. will return to [facility]. They are requiring two negative Covid Swabs prior to return. Second Swab is Pending.
--- NOTE | 2019-09-07 09:05 | NUR ---
updated on pt progress and rounded via telehealth. Medication orders updated per MD orders from . Read back and verified.
--- NOTE | 2019-09-07 11:20 | NUR ---
PHYSICAL THERAPY Patient seen this am for therapy visit and was sitting up in Quiet room Josefina chair upon therapist arrival. Patient identified by name / and was fixated on counting numbers repeatedly, needing multiple v/c's to focus on therapy task. Patient transfers sit to stand CGA and ambulates CGA, single handrail support ad sonia in hallway in view of [facility] staff, 100'x 1. Patient demonstrated slow, impulsive gait pattern, requiring several v/c's to improve overall standing safety awareness. Patient returned to her Josefina chair and was joined by CORSETIER for patient care, remaining under CORSETIER direct Supervision. Will continue per POC as tolerated, total treatment time 15 minutes. Quan Saab, WORKERS' COMPENSATION COMMISSIONER
--- NOTE | 2019-09-07 11:30 | NUR ---
and on unit to see pt at this time, update given.
--- NOTE | 2019-09-07 11:57 | NUR ---
AM GROUP PT DID NOT ATTEND MORNING GROUP THERAPY. PT WAS IN A QUIET ROOM RESTING.
--- NOTE | 2019-09-07 13:09 | NUR ---
P- Confusion, repetitive speech/counting noted although less frequently than yesterday, napping intermittently. I- Orientation, mood and behaviors assessed. Assessed pt for SI/HI, hallucinations, paranoia and/or delusions. Medications administered as per physician's orders. Assistance with ADL care provided as needed. Encouraged pt to attend and participate in grajeda milieu groups and activities. R- Pt is alert to name only, otherwise confused with ST/LT memory gaps noted. Resps easy and even on room air. Mood appears stable with appropriate affect. Pt smiling appropriately. Pt denies SI/HI, intent or plan. Pt denies hallucinations, no response to internal stimuli noted. No paranoia or delusions noted. Pt noted this morning with frequent repetitive speech and counting, however this behavior appears less frequent than previous assessment by this RN on 09/06/2019. Staff is able to interrupt pt and pt is able to engage in appropriate conversation given pt's cognition. Pt ambulated up and down hallways with this RN, pt then sat down in dining room and repetitive counting has ceased as of this time today. Pt napping intermittently, easily arousable when called by name. Pt is medication compliant without difficulty. Complaint with hands on care. No aggressive or threatening behaviors displayed. No distress noted. P- Plan to continue current treatment, continue to monitor mood and behaviors, provide appropriate reorientation, redirection and 1:1 as needed. Continue to encourage medication compliance as well as group attendance and participation.
--- NOTE | 2019-09-07 14:05 | NUR ---
GROUP A PT WAS PRESENT FOR GROUP THERAPY SITTING AT THE BACK OF THE ROOM SLEEPING IN A COMFY CHAIR SLEEPING. PT DID NOT WAKE DURING GROUP.
--- NOTE | 2019-09-07 15:39 | NUR ---
GROUP B PT ATTENDED GROUP THERAPY AND PARTICIPATED BY DANCING TO MUSIC. PT WAS ENGAGED AND WHEN SHE BEGAN TO COUNT OR SAY, "COME ON" I WOULD SING TO THE MUSIC AND SHE WOULD STOP AND DANCE. PT WAS PLEASANT AND EASY TO UNDERSTAND. PT EXHIBITED NO ADVERSE BEHAVIORS WHILE IN GROUP
--- NOTE | 2019-09-07 16:57 | NUR ---
Pt showered this afternoon with [facility] x2 assist without difficulty. Pt calm and cooperative with hands on care. Pt told this RN her shower was "really nice". Counting significantly decreased as day progresses. A few times pt would start to count, a staff member would engage pt in conversation or activity and counting ceased. Pt singing along with songs playing and talking about [place] foods. Ambulating ad sonia with steady gait.
[2019-09-07 19:05] VITALS: BP 143/62
--- NOTE | 2019-09-07 21:00 | NUR ---
24 HR chart check completed.
--- NOTE | 2019-09-08 02:25 | NUR ---
PATIENT HAS HAD NO BEHAVIORS TONIGHT. HAS BEEN MED COMPLIANT AND IS RESTING IN BED QUIETLY AT PRESENT.
--- NOTE | 2019-09-08 06:05 | NUR ---
PATIENT SLEPT MORE THAN 7 HOURS
--- NOTE | 2019-09-08 06:26 | NUR ---
Spoke with Amanda Mustafa and she states no matter what type of dressing we apply to patient. Patient removes and tries to eat dressing. No dressing applied at this time due to this behavior. Patient continues to have tubigrip intact.
--- NOTE | 2019-09-08 07:40 | NUR ---
PHYSICAL THERAPY Patient seen this am for therapy visit and was sitting in activity room chair following breakfast upon therapist arrival. Patient identified by name / and was pleasant, voicing no c/o's at this time. Patient able to follow all commands and verbalize responses this session and was observed throughout entire treatment by [facility] staff. Patient was Independent with all transfers and ambulated without AD, ad sonia in hallway, SBA, > 150'x 1, demonstrating bouts of "waddling" gait pattern. Patient was also a little unsteady during 180 turn arounds and easily distracted which contributes to decreased focus on task. Patient returned to activity room chair at table and remained under [facility] staff Supervision. Will continue per POC as tolerated, total treatment time 14 minutes. Quan Saab, ROOFER GYPSUM
--- NOTE | 2019-09-08 07:51 | NUR ---
Patient eating breakfast in dining room with peers. Respirations easy and regular. Vital signs stable. No overt distress. CHANDLER CORRIGAN
[2019-09-08 07:54] VITALS: BP 119/81
--- NOTE | 2019-09-08 08:48 | NUR ---
Jatin PMP-BC on unit to see pt at this time, update given.
--- NOTE | 2019-09-08 10:50 | NUR ---
Treatment team meeting held this AM with Janet RO, RN, life skills coordinator, and KATHERINE. Pt will discharge next week returning to [facility].
--- NOTE | 2019-09-08 11:33 | NUR ---
AM GROUP PT DID NOT ATTEND MORNING GROUP THERAPY.PT WAS IN A QUIET ROOM RESTING.
--- NOTE | 2019-09-08 12:36 | NUR ---
LUCY HANNAH CNP ON UNIT TO ASSESS PATIENT.
--- NOTE | 2019-09-08 13:20 | NUR ---
Clinical update faxed to Mariajose at [facility].
--- NOTE | 2019-09-08 14:13 | NUR ---
GROUP A PT ATTENDED GROUP THERAPY AND ENJOYED LISTENING TO THE MUSIC. PT IS A LITTLE RESTLESS AND KEPT EXITING TO DAYROOM TO WALK. PT EXHIBITED NO ADVERSE BEHAVIORS WHILE IN GROUP.
--- NOTE | 2019-09-08 15:22 | NUR ---
PHYSICAL THERAPY CO-SIGN I approve of the Physical Therapy notes written above. Carolynn Candelario PT
--- NOTE | 2019-09-08 19:35 | NUR ---
P- Confusion per baseline. Less counting and repetitive speech noted this date. Easier to redirect from counting behaviors. Continues to pick at wound care dressings and removing tubigrips from BUE. I- Orientation, mood and behaviors assessed. Assessed pt for SI/HI, hallucinations, paranoia and/or delusions. Medications administered as per physician's orders. Assistance with ADL care provided as needed. Encouraged pt to attend and participate in grajeda milieu groups and activities. R- Pt is alert and oriented to name only, otherwise confused. Resps easy and even on room air. Memory deficits noted. Mood appears stable with appropriate affect. Pt smiles apprpriately. Pt denies SI/HI, intent or plan. Pt denies hallucinations, no repsonse to internal stimuli noted. No paranoia or delusions noted. Decreased counting and repetitive speech noted this date, pt is more easily redirected and distracted from these behaviors. Med compliant. No aggressive behaviors. P- Plan to continue current tx, continue to monitor mood and behaviors, provide appropriate reorientation, redirection and 1:1 as needed. Continue to encourage med compliance as well as group attendance and participation.
[2019-09-08 19:48] VITALS: BP 126/86
--- NOTE | 2019-09-09 02:43 | NUR ---
P-CONFUSION I-REDIRECTION WITH 1:1 THERAPEUTIC INTERVENTIONS AND COMMUNICATION. PRESENT REALITY. EDUCATE AND ENCOURAGE MEDICATION COMPLIANCE R-MEDICATION COMPLIANT AT HS. PATIENT PROVIDED NOURISHMENT AND FLUIDS AT HS. PATIENT YELLING OUT RANDOM NUMBERS LESS DURING SHIFT. PATIENT INTERACTING WITH NURSING STAFF AND PROVIDED MUSIC FOR DIVERSIONAL ACTIVITY WITH EFFECTIVE RESULTS. PATIENT WITH NO HOMICIDAL IDEATIONS AND DENIES SUICIDAL IDEATIONS AT THIS TIME. P-CONTINUE TO ENCOURAGE MEDICATION COMPLIANCE, CONTINUE TO PRESENT REALITY, ENCOURAGE GROUP THERAPY WHILE AWAKE
--- NOTE | 2019-09-09 05:42 | NUR ---
PATIENT SLEPT APPROX 7 HOURS THROUGHOUT THE NIGHT UNINTERRUPTED. NO DISTRESS NOTED.
[2019-09-09 08:00] VITALS: BP 126/82
--- NOTE | 2019-09-09 12:00 | NUR ---
Shift chart check completed.
--- NOTE | 2019-09-09 12:30 | NUR ---
Ayse Navarro CNP on floor to assess patient, update provided.
--- NOTE | 2019-09-09 12:37 | NUR ---
P- Confusion. Restless, pacing and following staff/peers, intrussive at times. Hyperverbal in intervals. Noncompliant with wound care orders. I- Assess mood, orientation, SI/HI, hallucinations, delusions, paranoia, or pain. Provide reorientation, redirection, and reassurance frequently. 1:1 therapeutic interaction with emotional support and ventilation of feelings provided. Ambulate with patient frequently for restlessness. Provide medications on time with education on each. Encourage compliance with wound orders and keeping arm protectors intact. 1 assist with hands on care, toileting, and care due to confusion. R- Baseline confusion remains, reorientation remains ineffective. Mood "good", pleasant with interaction. This morning patient was repeatively stating "Come on, lets go" "Come on, down". 1:1 interaction, ambulating with pt, and provide food/fluids and care effective. Patient responding appropriately and repeatative speech quit after breakfast. Patient remains restless, sitting at times, and walking frequently. Pt interacting with staff, smiling, and responds appropriately to questions. Finger foods effective for patient due to restlessness. Pt without delusions, hallucinations, paranoia, or pain. No s/s of interacting with internal stimuli; No s/s of distress noted, resps even and unlabored on room air. Incontinent of bowel and bladder, one assist provided. Pt needs verbal direction due to confusion. Medication compliant. Pt continues to take off bandages for wounds and takes off arm protectors. Redirection, reapply, and encourage to keep on arm protectors effective. Ambulates with a steady gait. Pt is intrussive at times with staff/patients, redirection is effective. P- Assess mood, orientation, SI/HI, hallucinations, delusions, or pain every shift. 1:1 interaction, redirection, reassurance, and reorientation provided frequently. Ambulate with patient with restlessness. Encourage wound care compliance. Falling star program remains in place. Q15 minute checks maintained for safety.
[2019-09-09 20:00] VITALS: BP 135/69
--- NOTE | 2019-09-10 02:25 | NUR ---
NO ADVERSE BEHAVIORS NOTED. PT ALERT TO SELF, PLEASANTLY CONFUSED. PT CALM, PLEASANT, INTERACTIVE. ATE HS SNACK. PT MEDICATION COMPLIANT WITHOUT DIFFICULTY, UNABLE TO EDUCATE DUE TO COGNITION. PT DENIES SI/HI, HALLUCINATIONS, OR PAIN. PT AMBULATORY WITH A STEADY GAIT, X1-2 ASSIST WITH ADL'S, CONTINENT/INCONTINENT OF BOWEL AND BLADDER. PT CURRENTLY LAYING DOWN WITH EYES CLOSED, RESPIRATIONS EASY AND REGULAR, NO SIGNS OR SYMPTOMS OF DISTRESS NOTED. PLAN IS TO CONTINUE TO MONITOR MOOD AND BEHAVIORS. PROVIDE 1:1 WITH THERAPEUTIC INTERVENTIONS. PRESENT REALITY AND REORIENT NEEDED. ENCOURAGE MEDICATION COMPLIANCE AND EDUCATE. MAINTAIN Q 15 MIN CHECKS AND PRN FOR SAFETY.
--- NOTE | 2019-09-10 06:36 | NUR ---
PATIENT SLEPT APPROX 7 HOURS THROUGHOUT THE NIGHT UNINTERRUPTED. NO DISTRESS NOTED.
[2019-09-10 08:00] VITALS: BP 122/68
--- NOTE | 2019-09-10 10:00 | NUR ---
Tawanna VOCATIONAL EDUCATION PROFESSIONAL on unit to see pt at this time.
--- NOTE | 2019-09-10 17:49 | NUR ---
Problem: INTRUSIVE WITH PERSONAL SPACE Interventions: A&O TO PERSON, AGITATED, and behavior assessed VIA Q15 MINUTE SAFETY CHECKS. Continue medication regimen, encourage socializing with peers and staff, encouraged attending and participating in groups. 1:1 PROVIDED FOR THERAPEUTIC COMMUNICATION Response: PT REMAINS A&O TO PERSON ONLY. MEDICATION COMPLIANT WITH PROMPTING. Plan: Continue medication regimen, maintain patient safety on the unit, and continue to provide reorientation as needed. Continue to assess patient for orientation, CONTINUE TO MONITOR BEHAVIOR WITH Q15 MINUTE SAFETY CHECKS. Encourage patient to attend and participate in groups and encourage patient to socialize with peers and staff.
[2019-09-10 19:55] VITALS: BP 123/80
--- NOTE | 2019-09-10 23:05 | NUR ---
PT HAS DISPLAYED NO ADVERSE MOODS OR BEHAVIORS. PT PLEASANT AND INTERACTIVE. PT IS OCCASIONALLY INTRUSIVE TO PERSONAL SPACE, RESPONSIVE TO REDIRECTION. PT CONSUMED HS SNACK, DRANK 240CC OF FLUIDS. MEDICATION COMPLIANT WITHOUT DIFFICULTY. PT ASSISTED TO BED X 1 ASSIST. WILL CONTINUE TO MONITOR Q 15 MIN PER POLICY FOR SAFETY. BED LOW AND LOCKED, CALL LIGHT IN REACH IN SIDERAIL. BED ALARM INTACT AND AUDIBLE.
--- NOTE | 2019-09-11 05:44 | NUR ---
PT SLEPT 8 HOURS LAST NIGHT
--- NOTE | 2019-09-11 07:04 | NUR ---
TOÑO BILLINGS [id number] Please refer to the physician's history and physical for past medical history, comorbid conditions, and allergies. Diagnosis: INTERMITTENT EXPLOSIVE DISORDER Osei Score: 16,AT RISK WOUND DESCRIPTIONS: This nurse along with with Raven Leyva RN evaluated patient for skin impairments. Wound Number: 1 Location of the wound: right wrist Type of wound: skin tear scabbed Thickness: Partial Size: 2.2cm x 0.8cm x 0.1cm Tunneling: none Undermining: none Sinus Tract: none Presence of Exudate: None Amount: none Color: Red Odor: None Periwound Skin Appearance: Normal Wound edges: closed. Intact scab Pain (associated with wound): none at time of assessment How does patient state this happened? pt unable to state how this happened Wound Number: 2 Location of the wound: left forearm intact scabbed area noted at time of assessment. No drainage noted at time of assessment. No redness surrounding area at time of assessment. Wound Number: 3 Location of the wound: left forearm distal intact scabbed area noted at time of assessment. No drainage noted at time of assessment. No redness surrounding area at time of assessment. Wound Number: 4 Location of the wound: right elbow Type of wound: skin tear Thickness: Partial Size: 1.0cm x 0.8cm x 0.1cm Tunneling: none Undermining: none Sinus Tract: none Presence of Exudate: none Amount: None Color: [place] Odor: None Periwound Skin Appearance: Normal Wound edges: approximated Pain (associated with wound): none at time of assessment How does patient state this happened? pt unable to state how this happened Surface the patient is resting on: Proform SKIN PREVENTION RECOMMENDATION: 1. Pressure redistribution support surface as appropriate 2. Elevate heels 3. Remove boots/TEDS every shift and reapply 4. Head of bed 30 degrees as tolerated 5. Assess nutrition and hydration 6. Manage moisture 7. Avoid the use of containment devices while in bed 8. Use absorptive products on surfaces limit layers of linens on bed 9. Turn and reposition every 1-2 hours in bed and every 1 hour in chair as tolerated 10. Weight shifts every 15 minutes while up in chair 11. Offloading with pillows or device to keep heels elevated off bed 12. Monitor skin at least every shift 13. Inspect under medical devices twice a day WOUND TREATMENT RECOMMENDATIONS: Continue current orders to skin tears on right wrist and right elbow please d/d left forearm and left forearm distal since areas are intact scabbed areas at time of assessment. Continue elbow protectors at all times expect for hygiene. Continue wheelchair cushion when oob
--- NOTE | 2019-09-11 07:10 | NUR ---
PHYSICAL THERAPY Patient seen this am for therapy visit and was sitting up in activity room Josefina chair upon therapist arrival. Patient identified by name / and was repeatedly mumbling as she continued counting numbers aloud. Several [facility] staff were present in activity room / hallway for observation only as patient transfers sit to stand SBA x 1. Patient ambulated [address] [employer] OFF[employer]ER/CGA, 100'x 1, demonstrating bouts of impulsive gait velocity and decreased focus on task. Patient needed several v/c's to improve overall standing awareness and returned to her Josefina chair in activity room with lap tray, body alarm awaiting breakfast under [facility] staff Supervision. Will continue per POC as tolerated, total treatment time 15 minutes. Quan Saab, ACUTE COORDINATOR
[2019-09-11 08:00] VITALS: BP 139/66
--- NOTE | 2019-09-11 08:05 | NUR ---
Patient eating breakfast in dining room with peers. Respirations easy and regular. Vital signs stable. No overt distress. CHANDLER CORRIGAN
--- NOTE | 2019-09-11 08:48 | NUR ---
Ayse DIEHL notified of wound recommendations.
[2019-09-11] MEDS ORDERED: FLUVOXAMINE50 MG PO ×2 (09:35)
[2019-09-11] MEDS ORDERED: ROZEREM8 MG PO (09:35)
[2019-09-11] MEDS ORDERED: RISPERIDONE1 MG PO (09:35)
[2019-09-11] MEDS ORDERED: MEMANTINE HCL10 MG PO (09:35)
[2019-09-11] MEDS ORDERED: RIVASTIGMINE1 EAC2 T (09:35)
--- NOTE | 2019-09-11 11:33 | NUR ---
Tawanna notified of discharge for today at 1:30pm.
--- NOTE | 2019-09-11 12:42 | NUR ---
NURSE TO NURSE CALLED IN TO [facility] AND SPOKE TO LUCITA TAVERAS. PER [facility] DISCHARGE SUMMARY FAXED SO MEDICATION ORDERS CAN BE PLACED.
--- NOTE | 2019-09-11 13:35 | NUR ---
Pt was pleasant this AM as she sat in a donald-chair while counting numbers. Pt would reach for whomever would walk by. No adverse behaviors in pt were observed by this curriculum writer.
--- NOTE | 2019-09-11 13:37 | NUR ---
Patient is discharging today returning to [facility]. Follow-up will be with Dr Refugio Gardiner, visiting psychiatrist. While at [facility], pt's anxiety lessened. Pt was pleasant and cooperative. Pt did continue with periods of counting numbers.
--- NOTE | 2019-09-12 07:41 | NUR ---
PHYSICAL THERAPY CO-SIGN I approve of the Physical Therapy notes written above. ARNOL PRYOR PT,DPT
== END 2019-09-11 13:38 | DRG 883 ==
LOC: 3N 15:46
PROVIDERS: ADMIT Psychiatry & Neurology Psychiatry
DX: F63.81 Intermittent explosive disorder (principal); F02.81 Dementia in other diseases classified elsewhere, unspecified severity, with behavioral disturbance; N39.0 Urinary tract infection, site not specified; I11.0 Hypertensive heart disease with heart failure; G30.9 Alzheimer's disease, unspecified; I25.10 Atherosclerotic heart disease of native coronary artery without angina pectoris; F41.9 Anxiety disorder, unspecified; F42.9 Obsessive-compulsive disorder, unspecified; E11.69 Type 2 diabetes mellitus with other specified complication; G47.00 Insomnia, unspecified; F48.2 Pseudobulbar affect; J44.9 Chronic obstructive pulmonary disease, unspecified; I50.9 Heart failure, unspecified; Z95.0 Presence of cardiac pacemaker; Z90.710 Acquired absence of both cervix and uterus; Z87.891 Personal history of nicotine dependence; Z79.899 Other long term (current) drug therapy; Z88.0 Allergy status to penicillin; Z79.02 Long term (current) use of antithrombotics/antiplatelets; Z03.818 Encounter for observation for suspected exposure to other biological agents ruled out